=== PATIENT | male | born 1995 | race Caucasian/White ===

== ENCOUNTER 2020-01-15 13:17 | Emergency (ER) | payer MEDICAID ==
[~2020-01-15] VITALS: Ht 172.7 cm; Wt 77.0 kg
[2020-01-15] MEDS ORDERED: SODIUM CHLORIDE 0.9% 1,000 ML IV ONE (14:16)
[2020-01-15] MEDS ORDERED: MORPHINE SULFATE 4 MG/ML CPJ (NOT FOR IM USE) IV STA (14:16)
[2020-01-15] MEDS ORDERED: FAMOTIDINE 20MG/2ML VIAL IV STA (14:16)
[2020-01-15] MEDS ORDERED: ONDANSETRON HCL 4MG/2ML INJ IV STA (14:16)
[2020-01-15 14:39] LABS: PROTHROMBIN TIME 10.6 sec (9.6-11.0)
[2020-01-15 14:42] LABS: HEMATOCRIT. 41.9 % (42.0-52.0); HEMOGLOBIN. 14.2 g/dL (14.0-18.0); MEAN CORPUSCULAR HEMOGLOBIN 28.8 pg (28.0-32.0); MEAN PLATELET VOLUME 7.8 fl (7.4-10.4); PLATELET 379 x1000/uL (130-400); RED BLOOD CELL COUNT 4.93 mill/uL (4.7-6.1); RED CELL DISTRIBUTION WIDTH 13.6 % (11.6-14.6)
[2020-01-15 14:43] LABS: CHLORIDE 104 mEq/L (98-107)
[2020-01-15 14:47] LABS: ETHANOL BLOOD < 10 mg/dL
[2020-01-15 15:55] LABS: PLATELET ESTIMATE NORMAL
[2020-01-15 16:40] LABS: CLARITY URINE CLEAR (CLEAR); COLOR URINE YELLOW (YELLOW); KETONES URINE NEGATIVE (NEGATIVE); LEUKOCYTE ESTERASE URINE 1+ (NEGATIVE); NITRITE URINE NEGATIVE (NEGATIVE); OCCULT BLOOD URINE NEGATIVE (NEGATIVE); PH URINE 7.5 (4.5-8.0); PROTEIN URINE NEGATIVE (NEGATIVE); SPECIFIC GRAVITY URINE 1.014 (1.005-1.030)
[2020-01-15 16:57] LABS: *BARBITURATES SCREEN URINE NEGATIVE (NEGATIVE)
[2020-01-15 16:58] LABS: *BENZODIAZEPINES SCREEN URINE NEGATIVE (NEGATIVE); *COCAINE SCREEN URINE NEGATIVE (NEGATIVE); CANNABINOID URINE SCREEN NEGATIVE (NEGATIVE); METHADONE URINE SCREEN NEGATIVE (NEGATIVE); OPIATES URINE SCREEN PRESUMTIVE POSITIVE (NEGATIVE); PHENCYCLIDINE URINE SCREEN NEGATIVE (NEGATIVE)
[2020-01-15 16:59] LABS: *AMPHETAMINES SCREEN URINE PRESUMTIVE POSITIVE (NEGATIVE)
[2020-01-15] MEDS ORDERED: MAGNESIUM/ALUMINUM HYDROXIDE/SIMETHICONE 30ML UDC PO ONE (17:30)
[2020-01-15] MEDS ORDERED: KETOROLAC 30MG/ML VIAL IV ONE (17:30)
[2020-01-15 20:00] VITALS: BP 115/72
== END 2020-01-15 20:20 | disposition home or self-care (01) ==
LOC: ER 13:17
DX: R10.13 Epigastric pain (principal); R11.0 Nausea; R03.0 Elevated blood-pressure reading, without diagnosis of hypertension
CPT/HCPCS: 36415; 76705; 80053; 80305; 80320; 81003; 83690; 85025; 85610; 96374; 96375; 99285; J1885; J2270; J2405; J3490; J7030; G0480